=== PATIENT | female | born 1990 | race African-American/Black ===

== ENCOUNTER 2025-05-08 05:05 | Inpatient (IN) | payer OTHER ==
[2025-05-08 05:49] VITALS: BMI 38.9
[2025-05-08] MEDS ORDERED: Azithromycin 500 MG in Sodium Chloride 0.9% 250 ML 250 ML IVPB SCH (07:07)
[2025-05-08] MEDS ORDERED: Diphenoxylate HCl/Atropine Tablet PO PRN (07:07)
[2025-05-08] MEDS ORDERED: Methylergonovine 0.2 MG/ML VIAL IM PRN (07:07)
[2025-05-08] MEDS ORDERED: Famotidine/PF 20 mg/2ml Vial SLOW IVP PRN (07:07)
[2025-05-08] MEDS ORDERED: hydrALAZINE 20 MG/ML VIAL SLOW IVP PRN ×2 (07:07→11:36)
[2025-05-08] MEDS ORDERED: Ondansetron PF 4 MG/2 ML Vial IVP PRN ×4 (07:07→11:36)
[2025-05-08] MEDS ORDERED: Carboprost 250 MCG/ML AMP IM PRN (07:07)
[2025-05-08] MEDS ORDERED: Tranexamic Acid 1,000 MG/10 ML VIAL IVP PRN (07:07)
[2025-05-08] MEDS ORDERED: Oxytocin 30 units/NS 500 ML 500 ML IV SCH (07:07)
[2025-05-08] MEDS ORDERED: Bicitra 30 ML UDCUP PO PRN (07:07)
[2025-05-08] MEDS ORDERED: Acetaminophen 500 MG TAB PO PRN (07:07)
[2025-05-08 07:12] LABS: Hematocrit 34.7 % (34.9-44.5); Hemoglobin 12.0 g/dL (12.0-15.5); Mean Corpuscular Hemoglobin 30.2 pg (27.0-33.0); Mean Corpuscular Volume 87.4 fL (81.6-98.3); Platelet Count 232 10x3/uL (150-450); Red Blood Cell (RBC) Count 3.97 10x6/uL (3.90-5.03); White Blood Cell (WBC) Count 6.96 10x3/uL (3.5-10.5)
[2025-05-08] MEDS: CEFAZOLIN 2 GM VIAL ONE (07:29)
[2025-05-08 07:41] LABS: Syphilis Antibody Index 0.13 S/CO (<1.00 Non-Reactive)
[2025-05-08 07:42] LABS: Hep B Surf Ag - L&D Non-Reactive S/CO (NonReactive)
[2025-05-08] MEDS: Oxytocin 10 UNITS/ML VIAL ONE ×2 (09:46→09:47)
[2025-05-08] MEDS: Ondansetron PF 4 MG/2 ML Vial ONE (09:46)
[2025-05-08] MEDS: PHENYLEPHRINE-NS 100 MCG/ML 10 ML SYRINGE ONE (09:47)
[2025-05-08] MEDS: Tranexamic Acid 1,000 MG/10 ML VIAL ONE ×2 (09:47)
[2025-05-08] MEDS ORDERED: Meperidine HCl/PF 25 MG (1 mL) VIAL SLOW IVP PRN (10:24)
[2025-05-08] MEDS ORDERED: Ketorolac Tromethamine 30 MG (1 mL) VIAL IVP PRN (10:24)
[2025-05-08] MEDS ORDERED: diphenhydrAMINE 50 MG/ML VIAL IVP PRN (10:24)
[2025-05-08] MEDS ORDERED: Communication Order-Pharmacy FS SCH (10:30)
[2025-05-08] MEDS: Ketorolac Tromethamine 30 MG (1 mL) VIAL IVP SCH ×2 (11:35→12:31)
[2025-05-08] MEDS ORDERED: Bisacodyl 10 MG SUPP PR PRN (11:36)
[2025-05-08] MEDS ORDERED: Simethicone Chewable 80 MG TAB PO PRN (11:36)
[2025-05-08] MEDS ORDERED: diphenhydrAMINE 25 MG CAP PO PRN (11:36)
[2025-05-08] MEDS ORDERED: Lanolin Ointment 7 GM TUBE TOP PRN (11:36)
[2025-05-08] MEDS: Boostrix 0.5 ML (Tdap) VIAL (>/=7 yrs of age) IM ONE (12:08)
[2025-05-08 14:08] LABS: Hematocrit 33.8 % (34.9-44.5); Hemoglobin 11.2 g/dL (12.0-15.5); Mean Corpuscular Hemoglobin 29.6 pg (27.0-33.0); Mean Corpuscular Volume 89.2 fL (81.6-98.3); Platelet Count 197 10x3/uL (150-450); Platelet Count 205.0 10x3/uL (150-450); Red Blood Cell (RBC) Count 3.79 10x6/uL (3.90-5.03); White Blood Cell (WBC) Count 9.31 10x3/uL (3.5-10.5)
[2025-05-08 14:42] LABS: D-Dimer Test 2.35 mcg/mL (0.19-0.50); Fibrinogen 403.0 mg/dL (220-504); INR-International Normal Ratio 1.0; PTT 28.1 sec (22.0-33.0); Prothrombin Time 10.6 sec (9.5-12.1)
[2025-05-08] MEDS: NIFEdipine XL 60 MG ER.TAB PO SCH (21:04)
[2025-05-08] MEDS: Ferrous Sulfate 325 MG TAB PO SCH (21:05)
[2025-05-08] MEDS ORDERED: Meperidine HCl/PF 25 MG (1 mL) VIAL IM PRN (22:30)
[2025-05-08] MEDS ORDERED: HYDROcodone/Acetaminophen 5/325 mg Tablet PO PRN (22:30)
[2025-05-09] MEDS: HYDROcodone/Acetaminophen 5/325 mg Tablet PO PRN (00:28)
[2025-05-09 03:52] LABS: Hematocrit 28.3 % (34.9-44.5); Hemoglobin 9.7 g/dL (12.0-15.5); Mean Corpuscular Hemoglobin 29.8 pg (27.0-33.0); Mean Corpuscular Volume 87.1 fL (81.6-98.3); Platelet Count 208 10x3/uL (150-450); Red Blood Cell (RBC) Count 3.25 10x6/uL (3.90-5.03); White Blood Cell (WBC) Count 8.24 10x3/uL (3.5-10.5)
[2025-05-09] MEDS: Ketorolac Tromethamine 30 MG (1 mL) VIAL IVP SCH (07:53)
[2025-05-09] MEDS: metFORMIN 500 MG TAB PO SCH (17:11)
[2025-05-09] MEDS: Ibuprofen 800 MG TAB PO SCH (20:18)
[2025-05-11 08:07] VITALS: BP 108/67; TEMP 98.7
[2025-05-11] MEDS: metFORMIN 500 MG TAB PO SCH (08:13)
== END 2025-05-11 13:30 | disposition home or self-care (01) | DRG 786 ==
LOC: CSHLD 05:05 → CSHPP 11:45
PROVIDERS: ADMIT Family Medicine; ATTEND Family Medicine
PROC: 10D00Z1 Extraction of Products of Conception, Low, Open Approach (ICD-10-PCS; principal; 2025-05-08)
DX: O34.212 Maternal care for vertical scar from previous cesarean delivery (principal); O24.12 Pre-existing type 2 diabetes mellitus, in childbirth; O10.92 Unspecified pre-existing hypertension complicating childbirth; Z3A.36 36 weeks gestation of pregnancy; Z37.0 Single live birth
CPT/HCPCS: 36415; 36416; 51702; 85027; 85049; 85300; 85362; 85384; 85610; 85730; 86780; 86850; 86900; 86901; 87340; C1889; J1885; J2274; J2405; J2590; J7120